=== PATIENT | female | born 1995 | race Two or more races ===

== ENCOUNTER 2024-03-04 14:24 | Emergency (ER) | payer MEDICAID, OTHER ==
[~2024-03-04] VITALS: Ht 157.5 cm; Wt 59.3 kg
[2024-03-04 17:10] LABS: Urine Bacteria None Seen /hpf (None Seen)
[2024-03-04 17:29] LABS: Urine Blood 3+ /uL (Negative); Urine Budding Yeast OCCASIONAL /hpf (None Seen); Urine Clarity Turbid (Clear); Urine Color Colorless (Yellow); Urine Mucus FEW (None Seen); Urine Protein, UAD 1+ (Negative); Urine Specific Gravity 1.022 (1.001-1.035); Urine Urobilinogen Normal (Negative); Urine WBC 76 /hpf (0 - 5); Urine pH 5.5 (5.0-9.0)
[2024-03-04 18:30] VITALS: BP 112/74; PULSE 98; RESP 16; TEMP 98.2; O2SAT 87
[2024-03-04] MEDS ORDERED: BACDST PO (18:31)
[2024-03-04] MEDS: cefTRIAXone SOD 1,000 MG VL IM ONE (18:35)
[2024-03-04] MEDS: KETOROLAC TROMETH 60MG/2ML VIAL IM ONE (18:35)
[2024-03-04] MEDS ORDERED: IBUP-1456 PO (18:37)
== END 2024-03-04 18:31 | disposition home or self-care (01) ==
LOC: ER 14:24
DX: N39.0 Urinary tract infection, site not specified (principal); Z32.02 Encounter for pregnancy test, result negative
CPT/HCPCS: 81001; 81025; 96372; 99284; J0696; J1885